=== PATIENT | female | born 1985 ===

== ENCOUNTER 2017-05-27 11:17 | Emergency (ER) | payer MEDICAID ==
[2017-05-27 11:23] VITALS: BMI 22.1
[2017-05-27 11:25] VITALS: O2SAT 99
--- NOTE | 2017-05-27 13:35 | ED PDOC ---
HPI: Abdomen Time Seen by Provider: 05/27/17 13:34 Chief Complaint (Nursing): Abdominal Pain Chief Complaint (Provider): abd pain History Per: Patient (32 y/o female h/o gastric sleeve sx 1.5 years ago here with vomiting/diarrhea x 2 days. Notes chills. Denies any coughing. No new foods/ no travel/ camping. Denies any blood in stools.) Past Medical History Reviewed: Historical Data, Nursing Documentation, Vital Signs Vital Signs: Last Vital Signs Temp 99.4 F 05/27/17 19:28 Pulse 86 05/27/17 19:28 Resp 19 05/27/17 19:28 BP 117/67 05/27/17 19:28 Pulse Ox 99 05/28/17 16:51 - Medical History PMH: Gastritis Denies: Chronic Kidney Disease - Family History Family History: States: No Known Family Hx - Home Medications Home Medications: Ambulatory Orders Medication Instructions Recorded Liraglutide [Victoza] 6 mg SC DAILY 11/07/14 Metformin HCl [Metformin] 1,000 mg PO BID 11/07/14 Ranitidine HCl [Ranitidine 150] 150 mg PO DAILY 11/07/14 Sulfamethoxazole/Trimethoprim 1 tab PO BID 11/07/14 [Bactrim DS 800 mg-160 mg] Famotidine [Pepcid] 20 mg PO BID #10 tab 05/27/17 Ondansetron ODT [Zofran ODT] 4 mg PO Q8 PRN #10 odt 05/27/17 - Allergies Allergies/Adverse Reactions: Allergies Allergy/AdvReac Type Severity Reaction Status Date / Time No Known Allergies Allergy Verified 11/07/14 09:32 Review of Systems ROS Statement: Except As Marked, All Systems Reviewed And Found Negative Gastrointestinal: Positive for: Vomiting, Abdominal Pain, Diarrhea Physical Exam - Reviewed Nursing Documentation Reviewed: Yes Vital Signs Reviewed: Yes - Physical Exam Appears: Positive for: Well, Non-toxic, No Acute Distress Head Exam: Positive for: ATRAUMATIC, NORMAL INSPECTION, NORMOCEPHALIC Skin: Positive for: Normal Color, Warm, DRY Eye Exam: Positive for: EOMI, Normal appearance, PERRL ENT: Positive for: Normal ENT Inspection Neck: Positive for: Normal, Painless ROM Cardiovascular/Chest: Positive for: Regular Rate, Rhythm Respiratory: Positive for: CNT, Normal Breath Sounds Gastrointestinal/Abdominal: Positive for: Normal Exam, Soft Back: Positive for: Normal Inspection Extremity: Positive for: Normal ROM Neurologic/Psych: Positive for: Alert, Oriented - Laboratory Results Result Diagrams: 05/27/17 13:45 05/27/17 17:54 - ECG O2 Sat by Pulse Oximetry: 99 - Progress ED Course And Treament: NS 1 liter wide open x 2 liters zofran 4 mg iv x 1 dose pepcid 20 mg i vx 1 dose Disposition - Clinical Impression Clinical Impression: Gastroenteritis - Patient ED Disposition Is Patient to be Admitted: No - Disposition Referrals: [facility] [Outside] Disposition: Routine/Home Disposition Time: 18:34 Condition: FAIR Prescriptions: Famotidine [Pepcid] 20 mg PO BID #10 tab Ondansetron ODT [Zofran ODT] 4 mg PO Q8 PRN #10 odt PRN Reason: Nausea/Vomiting Instructions: Gastroenteritis (ED) Forms: [facility] (Citizen Of [place]), [facility] ED School/Work Excuse
[2017-05-27] MEDS: Sodium Chloride 0.9% 2,000 ML IV SCH ×2 (14:05→15:37)
[2017-05-27 14:06] LABS: BASO % 0.3 % (0.0-2.0); EOS % 0.2 % (0.0-4.0); HEMOGLOBIN 13.9 g/dL (12.0-16.0); LYMPH # 0.4 K/uL (1.0-4.3); LYMPH % 6.2 % (20.0-40.0); MEAN CELL VOLUME 84.4 fl (81.0-99.0); MEAN CORPUSCULAR HEMOGLOBIN 28.2 pg (27.0-31.0); MEAN CORPUSCULAR HGB CONC 33.4 g/dL (33.0-37.0); MEAN PLATELET VOLUME 9.8 fl (7.2-11.7); MONO # 0.4 K/uL (0.0-0.8); MONO % 5.9 % (0.0-10.0); NEUT # 5.4 K/uL (1.8-7.0); NEUT % 87.4 % (50.0-75.0); NRBC % 0.3 % (0.0-0.0); PLATELET COUNT 207 K/uL (130-400); RBC 4.91 Mil/uL (3.80-5.20); RED CELL DISTRIBUTION WIDTH 13.3 % (11.5-14.5); WHITE BLOOD COUNT 6.2 K/uL (4.8-10.8)
[2017-05-27 14:07] LABS: CALCIUM 9.6 mg/dL (8.4-10.2); GFR AFRICAN-AMERICAN > 60; GFR NON-AFRICAN AMERICAN > 60
[2017-05-27 14:13] LABS: ALBUMIN 4.5 g/dL (3.5-5.0); ALT/SGPT 19 U/L (9-52); AST/SGOT 41 U/L (14-36); BLOOD UREA NITROGEN 11 mg/dl (7-17)
[2017-05-27 14:52] LABS: BANDS 1 % (0-2); LYMPHOCYTE 5 % (20-50); MONOCYTE 5 % (0-10); NEUTROPHIL 89 % (42-75); PLATELET CLUMPS PRESENT; PLATELET ESTIMATE NORMAL (NORMAL); TOTAL CELLS COUNTED 100
[2017-05-27 18:27] LABS: CALCIUM 8.2 mg/dL (8.4-10.2); GFR AFRICAN-AMERICAN > 60; GFR NON-AFRICAN AMERICAN > 60
[2017-05-27 18:30] LABS: BLOOD UREA NITROGEN 9 mg/dl (7-17)
[2017-05-27] MEDS ORDERED: Sodium Chloride 0.9% 1,000 ML IV STA (18:31)
[2017-05-27 19:28] VITALS: BP 117/67; PULSE 86; RESP 19; TEMP 99.4
== END 2017-05-27 19:30 | disposition home or self-care (01) ==
LOC: H.ER 11:17
DX: K52.9 Noninfective gastroenteritis and colitis, unspecified (principal); Z79.84 Long term (current) use of oral hypoglycemic drugs
CPT/HCPCS: 80048; 80053; 81025; 83735; 85025; 87045; 87177; 87209; 96361; 96374; 99284; J7040